=== PATIENT | male | born 1960 | race Caucasian/White ===

== ENCOUNTER → 2022-03-16 | Outpatient (CLI) | payer OTHER ==
[2022-03-16 18:01] LABS: Basophils # (A) 0.11 X 10*3/uL (0.00-0.10); Basophils % (A) 1.2 %; Eosinophils # (A) 0.34 X 10*3/uL (0.04-0.35); Eosinophils % (A) 3.6 %; HCT 38.2 % (39.6-50.0); HGB 12.7 g/dL (13.0-17.0); Immature Grans, Automated 0.3 %; Lymphocytes # (A) 2.38 X 10*3/uL (0.90-5.00); Lymphocytes % (A) 25.1 %; MCH 27.7 pg (27.0-32.0); MCHC 33.2 g/dL (32.0-37.0); MCV 83.2 fL (80.0-97.0); Mean Platelet Volume 10.7 fL (9.5-12.2); Monocytes # (A) 0.78 X 10*3/uL (0.20-1.00); Monocytes % (A) 8.2 %; NRBC Per 100 WBC 0 /100 WBCS (0.0-0.0); Neutrophils # (A) 5.83 X 10*3/uL (1.80-7.70); Neutrophils % (A) 61.6 %; Platelet Count 215 X 10*3/uL (140-440); RBC 4.59 X 10*6/uL (4.40-5.60); RDW 13.4 % (11.5-14.5); WBC 9.47 X 10*3/uL (4.50-10.00)
[2022-03-16 18:15] LABS: African American GFR (CKD) 14.4 (60.0-200.0); Albumin 4.5 g/dL (3.8-4.9); Albumin/Globulin Ratio 1.63 (1.60-3.17); Anion Gap 12.6 mmol/L (10.00-18.00); BUN/Creat Ratio 10.45 Ratio (12.00-20.00); Blood Urea Nitrogen 48.8 mg/dL (9.0-27.0); Calcium 9.1 mg/dL (8.7-10.3); Carbon Dioxide 22.6 mmol/L (20.0-27.5); Globulin 2.8 g/dL (1.6-3.3); Non-African American GFR(CKD) 12.5 (60.0-200.0); Potassium 5.2 mmol/L (3.5-5.5); Total Bilirubin 0.4 mg/dL (0.30-1.20); Total Protein 7.3 g/dL (6.2-8.2)
== END | disposition home or self-care (01) ==
LOC: LABPAT 14:11
PROVIDERS: ATTEND Urology
DX: Z01.812 Encounter for preprocedural laboratory examination (principal); C61 Malignant neoplasm of prostate
CPT/HCPCS: 80053; 85025

== ENCOUNTER 2022-03-27 10:40 | Day surgery (SDC) | payer OTHER ==
--- NOTE | 2022-03-24 15:51 | P.GSHP ---
History of Present Illness H&P Date: 03/24/22 Chief Complaint: Prostate cancer The patient is a 61-year-old white male hospitalized earlier this year with acute renal failure. He was found to be in urinary retention and ultrasound showed bilateral hydronephrosis. After a period of Blakely catheter drainage, urodynamic testing showed normal detrusor function. He underwent a TURP on 12/17/2021. He has been able to void since that time, with adequate bladder emptying. However, pathology of the resected tissue showed Deidra 7 (4+3) adenocarcinoma involving 85-90% of the resected tissue. His PSA level was 37.350 on January 19, and 46.20 on February 20. He underwent a PSMA PET/CT scan, showing no metastases. He has elected to be treated with a combination of androgen deprivation therapy and IMRT. He received his first Lupron injection on February 20. - Constitutional Constitutional: Reports chronic headaches - Cardiovascular Cardiovascular: Reports high blood pressure - Respiratory Respiratory: Reports dyspnea - Genitourinary (Male) Genitourinary: Reports as per HPI - Psychiatric Psychiatric: Reports insomnia Surgical - Exam - General well developed, well nourished, no distress - Neck no masses, trachea midline - Respiratory normal respiratory effort - Abdomen Abdomen: soft, non tender, no guarding, no rigid, no rebound Hernia: umbilical - Genitourinary normal penis with no external lesions, testicles non-tender - Rectum Rectum: normal sphincter tone, no masses, other (Prostate moderately enlarged, R>L, smooth) Assessment and Plan (1) Malignant neoplasm of prostate Status: Acute Code(s): C61 - MALIGNANT NEOPLASM OF PROSTATE SNOMED Code(s): 371722680 Plan: The SpaceOar implant has been reviewed in detail with the patient. He understands that the rationale for this is to create separation between the prostate and rectum, thus reducing the risk of radiation proctitis. The material begins to breakdown 12-13 weeks following implant, and is reabsorbed by the body. Risks include anesthesia, bleeding, infection, and perineal discomfort. He understands that if the rectal wall is perforated the procedure will need to be aborted. The procedure will be performed by Dr. Ramirez.
[~2022-03-27 10:40] MED LIST: DEXAMETHASONE SOD PHOSPHATE 4 MG/ML 1 ML VIAL IV ONE; HYDROmorphone 0.5 MG/0.5 ML SYRINGE IVP PRN; LACTATED RINGERS 1,000 ML IV SCH; MIDAZOLAM 2 MG/2 ML VIAL IV PRN; ONDANSETRON 4 MG/2 ML VIAL IVP ONE; SCOPOLAMINE 1 MG/72 HR PATCH TRANSDERM ONE
[2022-03-27 11:11] VITALS: TEMP 97.3
[2022-03-27 11:12] LABS: Glucose,Whole Blood 77 mg/dL (70-110)
[2022-03-27] MEDS ORDERED: SODIUM CHLORIDE 0.9% 1,000 ML IV ONE (11:13)
[2022-03-27] MEDS ORDERED: LIDOCAINE 2% INJ 20 MG/ML (2 ML VIAL) ONE (12:11)
[2022-03-27] MEDS ORDERED: MIDAZOLAM 2 MG/2 ML VIAL ONE (12:11)
[2022-03-27] MEDS ORDERED: fentaNYL (PF) 50 MCG/ML 2 ML AMP ONE (12:11)
[2022-03-27] MEDS ORDERED: KETAMINE 10 MG/ML 20 ML VIAL ONE (12:11)
[2022-03-27] MEDS ORDERED: PROPOFOL 10 MG/ML 20 ML VIAL IV ONE (12:11)
[2022-03-27] MEDS ORDERED: LIDOCAINE 2% INJ 20 MG/ML SQ ONE ×2 (12:34)
[2022-03-27 12:59] VITALS: RESP 16
--- NOTE | 2022-03-27 13:01 | P.OP ---
Date of Procedure: 03/27/22 Preoperative Diagnosis: Prostate cancer Postoperative Diagnosis: same Procedure(s) Performed: SpaceOR placement Implants: SpaceOR gel placed Anesthesia: MAC Surgeon: Paul Ramirez Estimated Blood Loss (ml): 1 Pathology: none sent Condition: stable Disposition: PACU Indications for Procedure: he patient is a 61-year-old white male hospitalized earlier this year with acute renal failure. He was found to be in urinary retention and ultrasound showed bilateral hydronephrosis. After a period of Blakely catheter drainage, urodynamic testing showed normal detrusor function. He underwent a TURP on 12/17/2021. He has been able to void since that time, with adequate bladder emptying. However, pathology of the resected tissue showed Corinne 7 (4+3) adenocarcinoma involving 85-90% of the resected tissue. His PSA level was 37.350 on January 19, and 46.20 on February 20. He underwent a PSMA PET/CT scan, showing no metastases. He has elected to be treated with a combination of androgen deprivation therapy and IMRT. He received his first Lupron injection on February 20. Description of Procedure: The patient was taken to the operating room and placed in the dorsolithotomy position, with his legs supported in Boogie stirrups. The external genitalia was prepped and draped sterilely. The transrectal ultrasound probe was placed intrarectally. The prostate was imaged, of note there was evidence of TURP defect. The probe was then placed within the stabilizing stand. A spinal needle was advanced under ultrasonic guidance to the level of the urogenital diaphragm, and lidocaine was used to infiltrate the tissues as the needle was withdrawn. Next, the SpaceOAR needle was passed through the midline of the perineum, 1-2 cm anterior to the anal opening. The needle was slowly advanced under ultrasonic guidance until the needle tip was located within the fat plane between the prostate and rectum, at the level of the mid prostate gland. The needle was confirmed to be midline on the axial imaging. A small amount of normal saline was injected for hydrodissection. Next, the SpaceOAR components were mixed and loaded into the Y connector per protocol. The Y connector was then connected to the needle, and the components were injected slowly over a course of approximately 10 seconds. A total of 10 ml was injected. Significant distance was created between the prostate and rectum, as desired. It should be noted that at no point was there any concern of rectal perforation. The needle was withdrawn, as well as the transrectal ultrasound probe, and the procedure was terminated. The patient tolerated the procedure well and was taken to the recovery room in stable condition
[2022-03-27 13:30] VITALS: BP 135/84; PULSE 54
== END 2022-03-27 13:45 | disposition home or self-care (01) ==
LOC: OR 10:40
PROVIDERS: ATTEND Urology
DX: C61 Malignant neoplasm of prostate (principal); N13.30 Unspecified hydronephrosis
CPT/HCPCS: 55874; C1889; J2001 ×2; J2250; J1100; J0690; J2405; J3010; J2704